=== PATIENT | male | born 2000 | race Caucasian/White ===

== ENCOUNTER → 2020-10-16 16:25 | Outpatient (CLI) | payer OTHER, SELFPAY ==
[2020-10-16 18:33] LABS: Anion Gap 7 (5-15); BUN 14 mg/dL (7-18); BUN/Creat Ratio 15.7 RATIO (10-20); Calcium,Total 9.6 mg/dL (8.5-10.1); Chloride 107 mmol/L (98-107); Creatinine, Serum 0.89 mg/dL (0.70-1.30); EST Glomerular Filtration Rate 114 mL/min (>60); Est Glom Filt Rate - Afr Amer 137 mL/min (>60); Glucose 67 mg/dL (74-106); Potassium 3.7 mmol/L (3.5-5.1); Sodium Level 139 mmol/L (136-145)
== END ==
PROVIDERS: PCP Pediatrics; Visit Provider Family Medicine
DX: R11.10 Vomiting, unspecified (principal)
CPT/HCPCS: 36415; 80048

== ENCOUNTER → 2020-11-26 09:31 | Outpatient (CLI) | payer OTHER, SELFPAY ==
--- NOTE | 2020-11-26 09:45 | RAD_ITS ---
STUDY: X-RAY - LUMBAR SPINE REASON FOR EXAM: Male, 20 years old. PAIN IN LOWER BACK FOR SOME TIME OFF AND ON. PATIENT STATES RECENTLY WORSE SINCE HIS NIECE JUMPED ON HIS BACK LAST WEEK. PATIENT STATES HAS A HX OF A HERNIATED DISK. TECHNIQUE: 6 view(s) of the lumbar spine were obtained including oblique views. COMPARISON: None FINDINGS: Normal lumbar lordosis. There is no substantial scoliosis. There is a normal alignment of the vertebrae. Normal vertebral bodies and endplates. Mild degree of disc space narrowing at the L5-S1 level. The soft tissue structures are unremarkable. RAD/L/S Spine Min 4 Views IMPRESSION: Mild degree of disc space narrowing at the L5-S1 level. Electronically Signed: Gilberto Shabazz MD at 13:01 EST , Service support ,
== END ==
PROVIDERS: PCP Family Medicine; Referring Provider Family Medicine; Visit Provider Family Medicine
DX: M54.5 Low back pain (principal)
CPT/HCPCS: 72110

== ENCOUNTER → 2021-05-15 | Outpatient (CLI) | payer OTHER, SELFPAY ==
[2021-04-24 16:13] VITALS: BMI 46.6
[2021-05-15 19:01] LABS: Probe Check PASS; Specimen Processing Control PASS
== END | disposition home or self-care (01) ==
LOC: LABSPEC 16:38
PROVIDERS: PCP Family Medicine; Visit Provider Family Medicine
DX: B34.9 Viral infection, unspecified (principal)
CPT/HCPCS: 87633; 87635; U0005; U0003

== ENCOUNTER 2021-06-04 08:33 | Day surgery (SDC) | payer OTHER, SELFPAY ==
[2021-04-24 16:13] VITALS: BMI 46.6
--- NOTE | 2021-05-30 16:14 | EKG12_ITS ---
Test Reason : PRE OP Blood Pressure : / mmHG Vent. Rate : 091 BPM Atrial Rate : 091 BPM P-R Int : 144 ms QRS Dur : 098 ms QT Int : 348 ms P-R-T Axes : 035 020 176 degrees QTc Int : 428 ms Normal sinus rhythm ST & T wave abnormality, consider anterolateral ischemia Abnormal ECG Confirmed by ANYA STEWART, BRYN ([id number]), assistant production editor MARGARET ODELL ([id number]) on 06/03/2021 8:59:14 AM Referred By: Garland Parra Confirmed By:BRYN JOYNER MD
[2021-05-30 17:59] LABS: Hemoglobin 14.2 g/dL (13.0-16.5); Mean Corp Hgb Conc 33.8 g/dL (32-36); Mean Corpuscular Hgb 29.3 pg (27.0-32.0); Mean Corpuscular Volume 86.8 fL (80-94); Mean Platelet Vol. 11.1 fl (6.2-12.0); Platelet Count 284 K/mm3 (150-450); RBC Distribution Width CV 12.7 % (11.6-14.6); RBC Distribution Width SD 39.8 fl (35.1-43.9); Red Blood Count 4.84 M/mm3 (4.6-6.2); White Blood Count 10.1 K/mm3 (4.4-11.0)
[2021-05-30 18:22] LABS: Anion Gap 6 (5-15); BUN 14 mg/dL (7-18); BUN/Creat Ratio 14.3 RATIO (10-20); Calcium,Total 8.9 mg/dL (8.5-10.1); Chloride 109 mmol/L (98-107); Creatinine, Serum 0.98 mg/dL (0.70-1.30); EST Glomerular Filtration Rate 101 mL/min (>60); Est Glom Filt Rate - Afr Amer 122 mL/min (>60); Glucose 108 mg/dL (74-106); Sodium Level 141 mmol/L (136-145)
--- NOTE | 2021-06-03 15:57 | PCM.HP.BLA ---
History and Physical Date of Admission: 06/04/21 HISTORY OF PRESENT ILLNESS 20 year old man presents with a soft tissue mass right upper lip, lesion left central upper eyelid at the margin, and lesion right lateral arm within a tattoo that have increased in size over the last several months. He denies fever. He denies visual problems. He denies trauma. He denies any drainage or recent infection. He presents at this time for further evaluation and treatment. PAST MEDICAL HISTORY Back problem Mass of lip Neoplasm of skin of eyelid Neoplasm of skin of upper arm Smoker Subvalvar aortic stenosis PAST SURGICAL HISTORY tonsillectomy ALLERGIES No Known Allergies MEDICATIONS NK FAMILY HISTORY Mother - Anemia, Asthma, Arthritis, History of blood clots, Diabetes, Heart disease, Hypertension, High cholesterol, Kidney disease, Liver disease, COPD (chronic obstructive pulmonary disease), CVA (cerebral vascular accident) Father - Anxiety, Arthritis, Diabetes, COPD (chronic obstructive pulmonary disease) SOCIAL HISTORY Smoking Status: Current every day smoker alcohol intake: current substance use type: does not use REVIEW OF SYSTEMS General - Denies fever, fatigue, and weight loss. Eyes - Denies cataracts and glaucoma. ENT - Denies nasal congestion and sore throat. Endocrine - Denies excessive thirst and urination. Skin - Denies skin cancer. Has enlarging soft tissue mass right upper lip, lesion left central upper eyelid at the margin, and lesion right lateral arm within a tattoo. Musculoskeletal - Denies joint pain, joint stiffness, weakness of muscles and joints, and arthritis. Has back pain. Neuro - Denies headaches. Cardiovascular - Denies chest pain, fatigue, and shortness of breath with exertion. Psych - Denies anxiety and depression. Respiratory - Denies chronic cough and shortness of breath. Patient is a smoker. Gastrointestinal - Denies nausea, vomiting, diarrhea, and constipation. Hematologic - Denies abnormal bruising and bleeding. Genitourinary - Denies hematuria and urinary frequency. PHYSICAL EXAMINATION General - Alert and Oriented. HEENT - PERRL. EOMI. Throat is clear. On the right upper lip is a soft tissue mass. It is raised in configuration and is easily palpable in the upper gingivolabial mucosa. It is mobile. It measures 1 cm. The mass is located 1.6 cm from the oral commissure. There is some discomfort when the mass is bumped. On the left central upper eyelid at the margin is a lesion that measures 3 mm. It is raised in configuration. The length of the upper eyelid is 3.5 cm. No ulceration. Lesion is nontender. No other suspicious lesions noted. Neck - Supple and nontender. No cervical adenopathy. No suspicious lesions noted. Lungs - Clear to auscultation. Heart - Regular rate and rhythm. Abdomen - Soft and nondistended. Extremities - FROM. No axillary adenopathy. Radial pulses are palpable. On the right proximal lateral arm is a firm lesion that is raised in configuration. Has irregular borders. It is located within a tattoo. He states the lesion was there at the time of the tattoo, but it was flatter initially and has progressively become raised in configuration. It measures 1.2 cm. No ulceration. Lesion is nontender. Neuro - CN II-XII grossly intact. Psych - Normal mood and affect. ASSESSMENT 1. 1 cm soft tissue mass right upper lip. 2. 3 mm lesion left central upper eyelid at the margin. 3. 1.2 cm lesion right proximal lateral arm within a tattoo, resolving. 4. Smoker. PLAN Recommend excision of these lesions (right upper lip, left central upper eyelid at the margin) and send them to Pathology for analysis to rule out carcinoma. The right proximal lateral arm lesion is smaller and flatter and is stable at this time. Patient would like to wait on this tattoo lesion until changes occur at which time a biopsy would be done. He was in agreement with this plan. At the time of surgery in the future, the right proximal lateral arm lesion would be excised in an intradermal fashion. If carcinoma is present then will need further excision with local skin flap reconstruction and/or complex closure reconstruction that may require cartilage grafting. Surgery will be done under general anesthesia on an outpatient basis. Patient was informed of the risks and complications of the procedure including alternatives to surgery. These were discussed with the patient personally. Patient voices understanding and wishes to proceed. Some of the risks and complications were included in a form from the [employer]. Encouraged patient to stop smoking as it may have deleterious effects on wound healing. We discussed the current risks associated with COVID-19. While it is understood that there is a community spread of COVID-19, the risk of tori COVID-19 while at [facility] ([facility]) is very low; however, the risk cannot be completely mitigated because of the community spread of the disease. We discussed in detail the risk of exposure to and/or potential harm posed by the COVID-19 virus with having a surgery/procedure at this time versus the risk of delaying the surgery/procedure. It is not possible to know either the risk of delaying the surgery or procedure or chance of getting an infection with perfect accuracy, but a joint decision was made to proceed at this time with the scheduled surgery/procedure as indicated on the consent form. Patient was notified that we will need to comply with any screening or testing WC wishes to perform or that surgery may be delayed for any positive results.
--- NOTE | 2021-06-04 | LES_PTH ---
PATIENT: SRI DAY LOC: [facility] [place] U#:[id number] AGE/SX: 20/M ROOM: RE06/04/[address]: Dr. Garland Parra MD : 2000 BED: DIS: 06/04/2021 SPEC #: [id number] RECD: 06/04/21 11:06 STATUS: DREW REQ #: [id number] KETAN: 06/04/21 00:[address]: Garland Parra DEPT: SURGICAL PATHOLOGY RECD BY: Nelda Barrera ENTERED: 06/04/21 12:05 SP TYPE: Lesion OTHR DR: Dr. Ilya Calderón MD Tissues: Skin of eyelid, NOS Procedures: Frozen Section (charge) Surgery Specimen Level IV HEADER OPERATION: Excision lesion central left upper eyelid at margin PRE-OP DIAGNOSIS: 1 cm soft tissue mass right upper lid; 3 mm lesion left central upper eyelid at margin TISSUE SUBMITTED: A - 3 mm lesion left central upper eyelid at margin, FS, B - 1 cm soft tissue mass right upper lip FROZEN SECTION DIAGNOSIS A. Skin lesion, left upper eyelid margin, biopsy: Consistent with intradermal nevus. AM:toro 06/04/2021 Case has been reviewed in consultation with Dr. Day who concurs with the above diagnosis. IDC:SJ MICROSCOPIC DIAGNOSIS A. Skin lesion, left upper eyelid at margin, biopsy: Intradermal nevus. B. Lesion of right upper lip, biopsy: Trichilemmal cyst (pilar cyst). AM:toro 06/06/2021 COMMENT Case has been reviewed in consultation with Dr. Day who concurs with the above diagnosis. IDC:ELAINE MICROSCOPIC DESCRIPTION Slides are reviewed. GROSS DESCRIPTION A - Received fresh for frozen section consultation labeled with the patient's name is a specimen designated left central upper eyelid lesion. The specimen consists of a fragment of bearden tissue measuring 0.1 x <0.1 x <0.1 cm. The specimen is submitted in its entirety for frozen section consultation in one block. / AM:toro 06/04/2021 B - Received in fixative is one container labeled with the patient's name and designated 1 cm soft tissue mass right upper lip. The specimen consists of a bearden-white nodule measuring 1 x 1 x 0.8 cm. The specimen is inked, serially sectioned and contains bearden-white sebaceous material. The entire specimen is submitted in one cassette. / SJ:toro 06/05/21 TC:5 CPT: 30617 x2, 83544
[2021-06-04] MEDS: Lactated Ringers 1,000 ML 100 ML IV ×2 (08:30→11:01)
[2021-06-04 09:09] VITALS: BP 143/71; PULSE 88; RESP 16; TEMP 37.2; O2SAT 96; BMI 47.6
[2021-06-04] MEDS: Lidocaine 1% /Epi 1:100 (20ml) 20 ML Vial (11:00)
[2021-06-04] MEDS: Mupirocin Ointment 22gm Tube 1 APPLIC (11:21)
[2021-06-04] MEDS: Neomycin/Polymyxin/Dexameth OINT 3.5GM OPTH.TUBE 1 APPLIC OPHTHALMIC (11:22)
--- NOTE | 2021-06-04 11:40 | PCM.OPRPT ---
Problems Associated Problem List Diagnoses (1) Neoplasm of skin of eyelid: (2) Multiple benign nevi of left upper eyelid: (3) Mass of lip: (4) Smoker: Report of Operation Date of Procedure: 06/04/21 Pre-Operative Diagnosis: 1. 1 cm soft tissue mass right upper lip. 2. 3 mm lesion left central upper eyelid at the margin. 3. Smoker. Post-Operative Diagnosis: 1. 1 cm submuscular soft tissue mass right upper lip. 2. 3 mm benign nevus left central upper eyelid at the margin. 3. Smoker. Surgery/Procedure Performed:: 1. Excision 1 cm submuscular soft tissue mass right upper lip with 1.5 cm complex closure repair. 2. Excision 3 mm benign nevus left central upper eyelid at the margin. Description of Surgical Findings:: 20 year old man presents with a soft tissue mass right upper lip, lesion left central upper eyelid at the margin, and lesion right lateral arm within a tattoo that have increased in size over the last several months. He denies fever. He denies visual problems. He denies trauma. He denies any drainage or recent infection. Patient was informed of the risks and complications of the procedure including alternatives to surgery. These were discussed with the patient personally. Patient voices understanding and wishes to proceed. Some of the risks and complications were included in a form from the [employer]. Encouraged patient to stop smoking as it may have deleterious effects on wound healing. Patient also had a lesion right proximal lateral arm in a tattoo. Today it is smaller and flatter as it appears to be clinically resolving. The patient does not want this lesion excised as he doesn't want the tattoo compromised at this time. I told the patient that it looks better clinically and we can observe for now. I will want to look at it again postoperatively and if any changes occur, then we would schedule further surgery for excision. Patient voices understanding and knows that surgery is a possibility in the future and if done the tattoo would be compromised. But after healing of the scar, the tattoo can be revised. Patient voices understanding. Frozen section left central upper eyelid at margin - benign nevus. No carcinoma seen. Surgeon: Garland Parra management internship: None Type of Anesthesia: General Specimen's removed: 1. Lesion left central upper eyelid at margin to Pathology as a frozen section. 2. Submuscular soft tissue mass right upper lip to Pathology. Drains: None. Estimated Blood Loss (mL): 25. Description of Procedure: Patient was taken to OR in supine position and was placed under general anesthesia. The face and neck areas were prepped and draped in the usual fashion. SCD's were placed for DVT prophylaxis. Perioperative antibiotics were given intravenously. Using xylocaine with epinephrine, the lesions right upper lip and left central upper eyelid at margin were infiltrated. I took a corneal eye shield and placed sterile lube on its surface and placed it in the left eye. After waiting 5 minutes for the anesthetic to take effect, the lesion left central upper eyelid at margin was excised into the subcutaneous tissue. It was sent to Pathology as a frozen section for analysis to rule out carcinoma. Frozen section came back as a benign nevus and no carcinoma seen. Hemostasis was obtained with silver nitrate chemical cauterization. I used 3-0 Vicryl sutures for retraction sutures on the upper lip. I then made a horizontal incision intra-orally over the right upper lip mass. I dissected through the muscle until the mass was seen. It was firm and well encapsulated. Clinically it looked like a mucous cyst. After excision it was sent to Pathology for analysis to rule out carcinoma. Hemostasis was obtained with electrocautery. The size of the wound was 1.5 cm. A complex closure repair was done by approximating the underlying muscle layer with 4-0 Vicryl figure of eight interrupted sutures. The mucosa was approximated with 4-0 Chromic simple interrupted sutures. I then irrigated out the left eye after removing the corneal eye shield with balanced salt solution. I then placed Maxitrol (Neomycin Polymyxin Dexamethasone) Ophthalmic ointment to minimize infection during the healing process. Patient will do this three times a day at home. Antibiotic ointment was placed on the left upper eyelid wound. Patient tolerated the procedure well and was sent to PACU in satisfactory condition. Patient will be sent home on antibiotics and pain medication. He will keep his head elevated during the initial postoperative period. Patient will followup in a week for a wound check and for discussion of the pathology report. He will also use mouthwash after he eats to minimize infection. He will continue the Maxitrol Ophthalmic ointment to the left eye. Grafts/Implants Used: None. Complications None. Admit VTE Documentation VTE Present on Admission: No VTE Mechan Device Prophylaxis: SCD's VTE Pharm Prophylaxis ordered?: No Addendum Addendum: Surgery Charges CPT - 31335 ICD-10 - K13.0, F17.200 59489 K13.0, F17.200 39034 D49.2, D22.121, F17.200
--- NOTE | 2021-06-04 11:51 | PCM.DC ---
Discharge Instructions Diet Discharge Diet: No restrictions Activity Discharge Activity: May Shower (in two days.) and - (no heavy lifting. keep head elevated.) May shower in (days): 2 May resume sexual activity in: No Restrictions Ice area for (Minutes): 5 (as needed for facial swelling.) Weight Bearing Status: Weight bearing as tolerated Lifting Restrictions: 20 lbs. Keep extremity elevated above heart level: - (elevate head.) Dressing / Incision Call your doctor if your incision/area has: Continuous Slow Oozing, Increased Redness, Foul Smelling Discharge and Swelling at the incision site Call your doctor if you observe: Fever of 101 or Higher, Coldness, Increased Pain, Shortness of breath, Chest pain, Calf discomfort and Uncontrolled pain Suture Line Care: - (apply antibiotic ointment to left cental upper eyelid at margin wound daily. Use a q-tip.) Cleanse incision/area with: - (may shower in two days.) Follow Up Care Please Follow Up With: Garland Parra MD When: one week. Call [phone] for appt. Test Results: Test results from this visit will be discussed in further detail at your follow-up appointment, if applicable. Discharge Plan Admission Primary Reason for Your Visit: excision lesions Attending Provider: Garland Parra Primary Care Provider: Rudy Calderón Discharge Orders/Prescriptions Prescriptions: New clindamycin HCl [Cleocin HCl] 300 mg capsule 300 mg PO TID Qty: 15 RF: 0 oxycodone-acetaminophen [Percocet] 5-325 mg tablet 1 tab PO Q6H PRN (Reason: pain (scale score 7-10)) 5 Days Qty: 20 RF: 0 neomycin-polymyxin B-dexameth [Maxitrol] 3.5 mg/g-10,000 unit/g-0.1 % ointment 1 applic LEFT EYE TID Qty: 3.5 RF: 0 Other Ambulatory Orders: 12 Lead EKG (Routine) Timeframe: [id number] Location: None Selected Ordered By: Dr. Constantine Zheng Referrals / Follow Up: Rudy Calderón MD [Primary Care Provider] - Disposition Disposition (needs filled in before D/C Order can be placed): Home, Self Care
[2021-06-04 11:54] VITALS: BP 135/74; BP 143/71; PULSE 87; RESP 14; TEMP 36.1; O2SAT 90
[2021-06-04 12:00] VITALS: BP 143/71; BP 146/96; PULSE 81; RESP 16; O2SAT 92
[2021-06-04 12:15] VITALS: BP 143/71; BP 145/63; PULSE 89; RESP 18; O2SAT 95
[2021-06-04 12:26] VITALS: BP 136/71; BP 143/71; PULSE 83; RESP 17; TEMP 36; O2SAT 95
[2021-06-04] MEDS: oxyCODONE 5 MG Tablet PO (12:55)
[2021-06-04] MEDS: Acetaminophen 325 MG Tablet PO (12:55)
[2021-06-04 13:00] VITALS: BP 143/71
== END 2021-06-04 13:36 | disposition home or self-care (01) ==
LOC: SDC 08:35 → AC 08:35
PROVIDERS: Anesthesiology; PCP Family Medicine; Referring Provider Surgery; Visit Provider Surgery
PROC: (CPT 21013; principal; 2021-06-04 10:10)
DX: D22.121 Melanocytic nevi of left upper eyelid, including canthus (principal); D49.2 Neoplasm of unspecified behavior of bone, soft tissue, and skin; K13.0 Diseases of lips; F17.200 Nicotine dependence, unspecified, uncomplicated; Z20.822 Contact with and (suspected) exposure to COVID-19
CPT/HCPCS: 00300; 21013; 67840; 36415; 80048; 85027; 87635; 88305; 88331; 93005; C9803; J7120; U0005; J2405; U0003

== ENCOUNTER 2021-12-09 16:20 | Outpatient (CLI) | payer OTHER, SELFPAY ==
--- NOTE | 2021-12-09 16:22 | RAD_ITS ---
EXAM: XR RIGHT KNEE COMPLETE, 4 OR MORE VIEWS CLINICAL INDICATION: PATELLAR SUBLUXATION PATELLAR SUBLUXATION TECHNIQUE: Four or more views of the right knee. This report was created using [employer] report generation technology. COMPARISON: X-ray right knee 03/05/2016. FINDINGS: BONES/JOINTS: There is mild lateral subluxation of the patella. No acute fracture. Preservation of the joint space. No sclerotic or destructive changes observed. SOFT TISSUES: Unremarkable. No soft tissue swelling or gas. No radiopaque foreign body. RAD/Knee 4 or More Views IMPRESSION: 1. Mild lateral subluxation of the patella. 2. No evidence for fracture or andriy dislocation. Electronically Signed: Madan Valentin MD at 2:41 EST Reading Location ID and State: [facility] / [place] , Service support ,
== END 2021-12-09 23:59 | disposition home or self-care (01) ==
LOC: MTRAD 16:21
PROVIDERS: PCP Family Medicine; Referring Provider Family Medicine; Visit Provider Family Medicine
DX: S81.001A Unspecified open wound, right knee, initial encounter (principal)
CPT/HCPCS: 73564

== ENCOUNTER 2022-02-03 14:05 | Emergency (ER) | payer OTHER, SELFPAY ==
[2022-02-03 14:06] VITALS: BP 127/77; PULSE 85; RESP 15; TEMP 36; O2SAT 98; BMI 49.2
--- NOTE | 2022-02-03 14:18 | EDS_ITS ---
HPI History of Present Illness Chief Complaint: Nausea/Vomiting/Diarrhea Detail of Chief Complaint: Nausea, vomiting, and diarrhea for 4 days Informant: patient Narrative Narrative: Patient presents to the emergency department with complaint of vomiting and diarrhea that started 4 days ago. Patient denies any sick contacts. He denies fever. He is having a lot of dry heaves and throws up about 3-4 times a day and has about 5 watery stools a day. Mother states that this is not an infrequent thing that occasionally he will get episodes like this. Patient tried some Pepto-Bismol but did not help his diarrhea. He has been taking Zofran and still nauseated and has been unable to eat or drink. He describes minimal abdominal discomfort. He denies urinary symptoms. Denies eating any undercooked foods. Prior similar symptoms: Yes PFSH PFSH Medical History (Reviewed 07/17/21 @ 17:12 by Gina Sarah [employer], [employer]) Alcohol use Back pain Back problem History of echocardiogram Intradermal nevus of eyelid Mass of lip Neoplasm of skin of eyelid Neoplasm of skin of upper arm Pilar and trichilemmal cysts Smoker Subvalvar aortic stenosis Home Medications neomycin-polymyxin B-dexameth [Maxitrol] 1 applic LEFT EYE TID #3.5 g 06/04/21 [Rx Last Taken Unknown] diphenoxylate-atropine [Lomotil] 1 tab PO Q6H PRN #14 tab 02/03/22 [Rx Last Taken Unknown] promethazine 25 mg PO Q6H PRN #10 tab 02/03/22 [Rx Last Taken Unknown] Allergy/AdvReac Type Severity Reaction Status Date / Time No Known Allergies Allergy Unverified 07/17/21 16:11 Family History (Reviewed 07/17/21 @ 17:12 by Gina Sarah [employer] P[employer] M[employer]INE TENDER, [employer]INE [employer]-C) Mother Anemia Asthma Arthritis History of blood clots Diabetes Heart disease Hypertension High cholesterol Kidney disease Liver disease COPD (chronic obstructive pulmonary disease) CVA (cerebral vascular accident) Father Anxiety Arthritis Diabetes COPD (chronic obstructive pulmonary disease) Surgical History (Reviewed 07/17/21 @ 17:12 by Gina Sarah [employer] P[employer] TENDER, P[employer]INE [employer]ER-C) History of excision of lesion History of tonsillectomy Social History (Reviewed 07/17/21 @ 17:12 by Gina Sarah [employer] P[employer] M[employer]INE TENDER, P[employer] P[employer] MACHINE [employer]ER-C) Smoking Status: Current every day smoker tobacco type: cigarettes counseling given: provider counseling alcohol intake: current substance use type: does not use additional social history: DOES NOT TAKE ASPIRIN DOES NOT TAKE IBUPROFEN ROS ROS ED Constitutional Constitutional ED: Reports systems reviewed and no addt'l complaints, except as documented; Denies body ache(s), change in weight or chills Eyes Eyes: Denies acute decrease in peripheral vision, change in vision, double vision or loss of vision ENT ENT ED: Reports none; Denies ear pain, lip swelling, loss taste/smell, neck pain, otalgia or sore throat Cardiovascular Cardiovascular: Reports none; Denies abdominal pain, chest pain with activity, leg edema, lightheadedness, palpitations, rapid heart rate or syncope Respiratory/Chest Respiratory/Chest: Reports none; Denies change in mental status, dry cough, dyspnea, hemoptysis, shortness of breath at rest or shortness of breath with exertion Gastrointestinal Gastrointestinal: Reports none, abdominal pain, diarrhea, nausea and vomiting; Denies change in stool character, hematemesis, hematochezia, melena or rectal bleeding Genitourinary Genitourinary ED: Reports none; Denies abdominal discomfort, anuria, dysuria, genital pain or polyuria Musculoskeletal Musculoskeletal: Reports none; Denies arthralgias, back pain, difficulty walki ng, extremity pain, muscle weakness or myalgias Integumentary Reports none; Denies abscess or rash Neurologic Neurologic: Reports none; Denies abnormal gait, confusion, focal weakness, frequent falls, headache(s), loss of vision, numbness, paresthesias, radicular pain, vertigo or weakness Psychiatric Psychiatric: Reports systems reviewed and no addt'l complaints, except as documented and none; Denies behavioral changes, confusion, difficulty concentrating, hallucinations, suicidal ideation, tactile hallucinations or visual hallucinations Endocrine Endocrinology: Denies none, cold intolerance, excessive sweating, fatigue or heat intolerance Hematologic/Lymphatic Hematologic/Lymphatic: Reports none; Denies anemia, easy bleeding or easy bruising Allergic/Immunologic Allergic/Immunologic ED: Denies as per HPI, none, lip swelling, mouth swelling, throat swelling, tongue swelling or hives EXAM Physical Exam Const Vital Signs: 02/03/22 14:06 Temperature 96.8 F L Temperature Source Temporal Pulse Rate 85 Respiratory Rate 15 Blood Pressure 127/77 H Blood Pressure Mean 93 Pulse Ox 98 Oxygen Delivery Method Room Air Positive well nourished and well developed General Appearance ED: well developed and NAD HEENT Reports TM's clear and moist mucous membranes normocephalic and atraumatic; Negative for trauma or tenderness Tympanic Membrane ED: Yes TM's clear Eyes PERRL and EOMs intact bilaterally General Eye ED: Negative for pale conjunctiva or scleral icterus Neck no lymphadenopathy, supple and no JVD General: Negative for tenderness Chest Wall inspection of chest normal and palpation of chest normal Chest: Negative for tenderness Resp normal respiratory effort and clear to auscultation bilaterally Effort and Inspection: Negative for respiratory distress or pain with movement Auscultation: Negative for rhonchi, wheezes or diminished lung sounds Cardio regular rate, regular rhythm, S1 normal heart sound, S2 normal heart sound and no murmurs Peripheral Pulses: pulses 2+ throughout GI normal to inspection, nondistended, normoactive bowel sounds, soft to palpation, non-tender, non-distended and no masses Back/Spine no CVA tenderness and no thoracic nor lumbar tenderness Extremity normal to inspection General Extremety ED: Negative for edema General Extremity: Negative for edema Neuro oriented x3, CN's II-XII intact bilaterally, no sensory deficits noted and gait normal Sensorium / Orientation: awake, alert, oriented to person, oriented to place and oriented to time Motor Exam: strength 5/5 throughout and strength abnormal Psych mental status grossly normal Skin no rashes or lesions noted and no wounds MDM MDM MDM Narrative Medical decision making narrative: During exit interview patient states that about 7 or 8 hours before symptoms started he did eat Vietnamese food but his father also waited so he was not sure if maybe that had some to do with it. At this point I suspect more likely this is a viral gastroenteritis. Patient will be given a prescription for Zofran as well as Lomotil. Patient advised to push fluids and follow-up with his primary care physician in 3 to 5 days. Patient to return if persistent vomiting, diarrhea, dehydration, severe abdominal pain, or condition should worsen anyway. Lab Data Attestation: I reviewed the patient's lab results. Labs: Laboratory Results - last 24 hr 02/03/22 02/03/22 14:30 14:30 WBC 10.2 RBC 5.47 Hgb 16.4 Hct 46.9 MCV 85.7 MCH 30.0 MCHC 35.0 RDW Std Deviation 39.4 RDW Coeff of Armaan 12.7 Plt Count 303 MPV 10.9 Immature Gran % (Auto) 0.300 Neut % (Auto) 55.6 Lymph % (Auto) 33.0 [place] % (Auto) 6.5 Eos % (Auto) 4.0 Baso % (Auto) 0.6 Absolute Neuts (auto) 5.7 Absolute Lymphs (auto) 3.38 Nucleated RBC % 0 Sodium 139 Potassium 4.0 Chloride 106 Carbon Dioxide 28.0 Anion Gap 5 BUN 12 Creatinine 0.87 Estim Creat Clear Calc 162.13 Est GFR (MDRD) Af Amer 139 Est GFR (MDRD) Non-Af 115 BUN/Creatinine Ratio 13.8 Glucose 94 Calcium 8.9 Total Bilirubin 0.60 AST 30 ALT 75 H Alkaline Phosphatase 64 Total Protein 7.7 Albumin 3.9 Globulin 3.8 Albumin/Globulin Ratio 1.0 Lipase 73 Discharge Plan Triage Chief Complaint: Nausea/Vomiting/Diarrhea ED Provider: Mayra Hurd Dx/Rx/DC Orders Clinical Impression: Viral gastroenteritis Instructions: ED Diet for Vomiting or ..., ED Food Poison Or Gastroenteritis, Viral Gastroenteritis Prescriptions: New promethazine 25 mg tablet 25 mg PO Q6H PRN (Reason: nausea and vomiting) Qty: 10 RF: 0 diphenoxylate-atropine [Lomotil] 2.5-0.025 mg tablet 1 tab PO Q6H PRN (Reason: diarrhea) Qty: 14 RF: 0 No Action neomycin-polymyxin B-dexameth [Maxitrol] 3.5 mg/g-10,000 unit/g-0.1 % ointment 1 applic LEFT EYE TID Qty: 3.5 RF: 0 Primary Care Provider: Rudy Calderón Referrals: Rudy Calderón MD [Primary Care Provider] - 3-5 Days Disposition Disposition: Home, Self Care
[2022-02-03] MEDS: Ondansetron 4 MG/2 ML Vial IV (14:27)
[2022-02-03] MEDS: 0.9% Normal Saline 1,000 ML 999 ML IV (14:27)
[2022-02-03] MEDS: Diphenoxylate/Atrop 1 Tablet 2 TABLET PO (14:28)
[2022-02-03 14:40] LABS: Absolute Lymphocyte Count 3.38 X10^3/uL (0.83-4.51); Absolute Neutrophil Count 5.7 X10^3/uL (2.0-7.7); Basophil# 0.06 X10^3/uL; Basophil% 0.6 % (0-1); Eosinophil# 0.41 X10^3/uL; Hematocrit 46.9 % (40-54); Hemoglobin 16.4 g/dL (13.0-16.5); Lymphocyte # 3.38 X10^3/ul (0.83-4.51); Mean Corpuscular Volume 85.7 fL (80-94); Mean Platelet Vol. 10.9 fl (6.2-12.0); Monocyte# 0.67 X10^3/uL; Monocyte% 6.5 % (0-10); NRBC Flagged by Analyzer 0 % (0-5); Neutrophil # 5.68 X10^3/uL (2.7-7.7); Neutrophil % 55.6 % (47-70); Platelet Count 303 K/mm3 (150-450); RBC Distribution Width CV 12.7 % (11.6-14.6); RBC Distribution Width SD 39.4 fl (35.1-43.9); Red Blood Count 5.47 M/mm3 (4.6-6.2); White Blood Count 10.2 K/mm3 (4.4-11.0)
[2022-02-03 14:52] LABS: AST(SGOT) 30 U/L (15-37); Alanine Aminotransfer ALT/SGPT 75 U/L (16-61); Albumin, Serum 3.9 g/dL (3.2-5.0); Alkaline Phosphatase 64 U/L (45-117); Anion Gap 5 (5-15); BUN 12 mg/dL (7-18); BUN/Creat Ratio 13.8 RATIO (10-20); Calcium,Total 8.9 mg/dL (8.5-10.1); Chloride 106 mmol/L (98-107); Creatinine, Serum 0.87 mg/dL (0.70-1.30); EST Glomerular Filtration Rate 115 mL/min (>60); Est Glom Filt Rate - Afr Amer 139 mL/min (>60); Estimated Creatinine Clearance 162.13 ml/min; Globulin 3.8 g/dL (2.2-4.2); Glucose 94 mg/dL (74-106); Lipase 73 U/L (73-393); Protein, Total 7.7 g/dL (6.4-8.2); Sodium Level 139 mmol/L (136-145)
[2022-02-03 15:25] VITALS: BP 130/78; PULSE 85; RESP 16
== END 2022-02-03 16:24 | disposition home or self-care (01) ==
PROVIDERS: Emergency Provider Emergency Medicine; PCP Family Medicine; Visit Provider Emergency Medicine
DX: A08.4 Viral intestinal infection, unspecified (principal); F17.210 Nicotine dependence, cigarettes, uncomplicated
CPT/HCPCS: 80053; 83690; 85025; 96361; 96365; 96375; 99284; J7030; A4216; J2405

== ENCOUNTER → 2024-02-08 | Outpatient (CLI) | payer OTHER, SELFPAY ==
--- NOTE | 2024-02-08 15:47 | RAD_ITS ---
INDICATION: BACK PAIN EXAMINATION/TECHNIQUE: X-RAY - XR Spine Lumbar Min 4 Views COMPARISON: 11/26/20. FINDINGS: VERTEBRAE: 6 lumbar type vertebra with suggestion of lumbarization of S1. Levels are numbered accordingly from superior for the purposes of this study. Preserved vertebral body height. Pars defects at L4 with minimal grade 1 anterolisthesis L4 on L5 (as noted from superior.) No fracture. No spondylolisthesis. Levocurvature of the lumbar spine. Preservation of the normal lumbar lordosis. No significant facet arthropathy. DISCS: Disc spaces are maintained. Diminutive disc suggested at S1-S2 INCLUDED ABDOMEN: Included bowel gas pattern is non-obstructive. RAD/L/S Spine Min 4 Views IMPRESSION: Lower lumbar pars defects with grade 1 anterolisthesis. Mild lumbar levocurvature. 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 Levels numbered accordingly Electronically Signed: Archie Squires MD at 17:18 EDT ,
== END | disposition home or self-care (01) ==
LOC: MTRAD 15:46
PROVIDERS: PCP Family Medicine; Referring Provider Family Medicine; Visit Provider Family Medicine
DX: M53.9 Dorsopathy, unspecified (principal)
CPT/HCPCS: 72110

== ENCOUNTER → 2024-07-04 | Outpatient (CLI) | payer OTHER, SELFPAY ==
--- NOTE | 2024-07-04 13:51 | ECHOCS_ITS ---
Reason For Study: ABNORMAL EKG Procedure This was a 2D Doppler, Color Flow transthoracic echocardiogram. The study was technically difficult. Contrast injection was performed. Exam performed in department. Left Ventricle Mild concentric left ventricular hypertrophy. The left ventricular ejection fraction is 65 %. Normal diastololic function. Right Ventricle Normal right ventricle. Atria The left and right atria are normal. Mitral Valve The mitral valve is structurally normal. No prolapse or stenosis seen. Tricuspid Valve Normal tricuspid valve. Aortic Valve Trisinus/trileaflet aortic valve. Pulmonic Valve The pulmonic valve is not well visualized. Great Vessels Normal sized aortic root. Pericardium/Pleural No pericardial effusion. Medication 22 gauge I.V. with prn adaptor inserted into left arm. Diluted definity 2ml given slow IV push to enhance endocardial definition. MMode/2D Measurements & Calculations LVIDd: 4.3 cm IVSd: 1.3 cm LVOT diam: 2.3 cm LVIDs: 1.9 cm LVPWd: 1.2 cm RVDd: 4.1 cm FS: 55.8 % LVOT area: 4.3 cm2 asc Aorta Diam: 2.9 cm LAV(MOD-bp): 49.1 ml LVAd ap4: 40.8 cm2 LAV(MOD-bp) Indexed: 16.7 ml/m2 LVLd ap4: 10.0 cm LAV(MOD-sp2): 45.4 ml EDV(MOD-sp4): 136.2 ml LAV(MOD-sp4): 50.1 ml EDV(sp4-el): 141.6 ml LVAs ap4: 22.9 cm2 LVLs ap4: 8.8 cm ESV(MOD-sp4): 49.0 ml ESV(sp4-el): 50.5 ml EF(MOD-sp4): 64.0 % EF(sp4-el): 64.3 % LVAd ap2: 34.9 cm2 SV(MOD-sp4): 87.2 ml SV(MOD-sp2): 66.3 ml LVLd ap2: 10.0 cm EDV(MOD-sp2): 98.3 ml EDV(sp2-el): 103.5 ml LVAs ap2: 19.2 cm2 LVLs ap2: 9.0 cm ESV(MOD-sp2): 32.1 ml ESV(sp2-el): 34.5 ml EF(MOD-sp2): 67.4 % SV(sp4-el): 91.1 ml Ao sinus diam: 3.[address] Junction: 2.6 cm LA dimension(2D): 3.3 cm LA A4 area: 17.9 cm2 RA A4 area: 13.5 cm2 TAPSE: 2.3 cm Time Measurements MV dec time: 0.28 sec Doppler Measurements & Calculations MV E max harjinder: 77.3 cm/sec Lat Peak E' Harjinder: 11.8 cm/sec Med Peak E' Harjinder: 9.8 cm/sec MV A max harjinder: 76.6 cm/sec E/E' lat: 6.5 E/E' med: 7.9 MV E/A: 1.0 MV dec slope: 277.3 cm/sec2 Ao V2 max: 195.2 cm/sec LV V1 max: 163.6 cm/sec Ao max P.2 mmHg LV V1 max P.7 mmHg Ao V2 mean: 154.3 cm/sec LV V1 mean P.0 mmHg Ao mean P.0 mmHg LV V1 mean: 128.3 cm/sec Ao V2 VTI: 37.4 cm LV V1 VTI: 30.4 cm AV (velocity ratio): 0.81 ADELA(I,D): 3.5 cm2 ADELA(V,D): 3.6 cm2 SV(LVOT): 130.1 ml PA V2 max: 129.9 cm/sec PA max PG (full): 3.0 mmHg ECHO/Echo Complete W/ Contrast Interpretation Summary Technically difficult study. Mild concentric left ventricular hypertrophy. The left ventricular ejection fraction is 65 %. Mild LVOT gradient noted. Recommend cardiac MRI for further evaluation. Ordering Physician: Ilya Calderón Referring Physician: Ilya Calderón Performed By: Elizabeth Connell RDCS
== END | disposition home or self-care (01) ==
LOC: CVS 13:47
PROVIDERS: PCP Family Medicine; Referring Provider Family Medicine; Visit Provider Family Medicine
DX: R94.31 Abnormal electrocardiogram [ECG] [EKG] (principal)
CPT/HCPCS: 93306; Q9957; A4216; C8929

== ENCOUNTER → 2024-07-12 | Outpatient (CLI) | payer OTHER, SELFPAY ==
[2024-07-12 17:28] LABS: Hematocrit 44.4 % (40-54); Hemoglobin 14.8 g/dL (13.0-16.5); Mean Corp Hgb Conc 33.3 g/dL (32-36); Mean Corpuscular Hgb 29.1 pg (27.0-32.0); Mean Corpuscular Volume 87.4 fL (80-94); Mean Platelet Vol. 11.4 fl (6.2-12.0); Platelet Count 280 K/mm3 (150-450); RBC Distribution Width CV 12.7 % (11.6-14.6); RBC Distribution Width SD 40.2 fl (35.1-43.9); Red Blood Count 5.08 M/mm3 (4.6-6.2); White Blood Count 11.6 K/mm3 (4.4-11.0)
[2024-07-12 18:25] LABS: ALB/GLOB Ratio 1.2 RATIO (0.9-2.4); AST(SGOT) 20 U/L (15-37); Alanine Aminotransfer ALT/SGPT 47 U/L (16-61); Alkaline Phosphatase 65 U/L (45-117); Anion Gap 7 (5-15); BUN 14 mg/dL (7-18); BUN/Creat Ratio 14.6 RATIO (10-20); Calcium,Total 9.4 mg/dL (8.5-10.1); Chloride 108 mmol/L (98-107); Cholesterol 211 mg/dL (200); Creatinine, Serum 0.96 mg/dL (0.70-1.30); EST Glomerular Filtration Rate 101 mL/min (>60); Est Glom Filt Rate - Afr Amer 122 mL/min (>60); Globulin 3.4 g/dL (2.2-4.2); Glucose 87 mg/dL (74-106); High Density Lipoprotein 41 mg/dL; Potassium 3.9 mmol/L (3.5-5.1); Protein, Total 7.4 g/dL (6.4-8.2); Sodium Level 139 mmol/L (136-145); Triglycerides 171 mg/dL; Very Low Density Lipoprotein 34 mg/dL (5-40)
== END | disposition home or self-care (01) ==
LOC: MFPLAB 16:18
PROVIDERS: PCP Family Medicine; Visit Provider Family Medicine
DX: Q24.4 Congenital subaortic stenosis (principal)
CPT/HCPCS: 36415; 80053; 80061; 85027

== ENCOUNTER → 2025-01-03 | Outpatient (CLI) | payer OTHER, SELFPAY ==
[2025-01-03 17:47] LABS: Hematocrit 42.8 % (40-54); Mean Corpuscular Hgb 30.1 pg (27.0-32.0); Mean Corpuscular Volume 85.9 fL (80-94); Mean Platelet Vol. 11.5 fl (6.2-12.0); Platelet Count 259 K/mm3 (150-450); RBC Distribution Width CV 12.9 % (11.6-14.6); RBC Distribution Width SD 40.2 fl (35.1-43.9); Red Blood Count 4.98 M/mm3 (4.6-6.2); White Blood Count 10.2 K/mm3 (4.4-11.0)
[2025-01-03 19:19] LABS: Vitamin B12 535 pg/mL (180-914); Vitamin D,25 Hydroxy 16.4 ng/mL (30-100)
[2025-01-03 20:43] LABS: CORTISOL PM 3.62 ug/dL (2.68-10.50)
== END | disposition home or self-care (01) ==
LOC: MFPLAB 16:15
PROVIDERS: PCP Family Medicine; Referring Provider Family Medicine; Visit Provider Family Medicine
DX: R53.83 Other fatigue (principal)
CPT/HCPCS: 36415; 82306; 82533; 82607; 84403; 84443; 85027

== ENCOUNTER 2025-05-09 12:56 | Outpatient (CLI) | payer OTHER, SELFPAY ==
--- NOTE | 2025-05-09 13:02 | RAD_ITS ---
PROCEDURE: CHEST PA AND LATERAL 05/09/2025 REASON FOR EXAM: COUGH TECHNIQUE: CHEST PA AND LATERAL COMPARISON: None FINDINGS: No focal consolidation. No pleural effusion or pneumothorax. Cardiac silhouette is within normal limits. No acute fractures. RAD/Chest PA and Lateral IMPRESSION: No focal consolidations. Reading Location: [id number]
[2025-05-09 15:54] LABS: Vitamin D,25 Hydroxy 39.4 ng/mL (30-100)
== END 2025-05-09 23:59 | disposition home or self-care (01) ==
LOC: MTLAB 12:59
PROVIDERS: PCP Family Medicine; Referring Provider Family Medicine; Visit Provider Family Medicine
DX: R05.9 Cough, unspecified (principal); R79.89 Other specified abnormal findings of blood chemistry
CPT/HCPCS: 36415; 71046; 82306; 84403